=== PATIENT | male | born 1950 | race Caucasian/White ===

== ENCOUNTER 2017-01-21 04:08 | Inpatient (IN) | payer MEDICARE, MEDICAID ==
[~2017-01-21] VITALS: Ht 175.3 cm; Wt 80.4 kg
[~2017-01-21 04:08] MED LIST: ACET160S2 PO; ASPI-1093 PO; BUSP5TAB20 PO; DIAZ5 PO; DIPH25 PO; FERR-89 PO; GING550C4 PO; HYD50 PO; MECL-111 PO; OMEP10 PO; PANT40TA25 PO; SAXA2.5T PO; SEVEC800 PO; SIMV20TA6 PO; TRAZ-147 PO
[2017-01-21 04:27] LABS: GLUCOSE COMMENT 1 Doctor Notified; GLUCOSE,POINT OF CARE 83 MG/DL (70-110)
[2017-01-21 04:35] LABS: BASOPHILS % (AUTO) 0.7 % (0.0-2.0); EOSINOPHILS % (AUTO) 4.1 % (1.0-6.0); HEMATOCRIT 36.5 % (41-53); HEMOGLOBIN 11.5 g/dL (13.5-17.5); LYMPHOCYTES # (AUTO) 0.9 K/uL (1.0-4.8); LYMPHOCYTES % (AUTO) 14.5 % (22.0-44.0); MEAN CORPUSCULAR HEMOGLOBIN 30.2 pg (26.0-34.0); MEAN CORPUSCULAR HGB CONC 31.7 G/dL (31.0-37.0); MEAN CORPUSCULAR VOLUME 95 fL (80-100); MONOCYTES # (AUTO) 0.4 K/uL (0.1-1.0); MONOCYTES % (AUTO) 7.3 % (2.0-9.0); NEUTROPHILS # (AUTO) 4.4 K/uL (1.8-7.7); NEUTROPHILS % (AUTO) 73.4 % (40.0-70.0); PLATELET COUNT (AUTO) 213 K/uL (150-450); RED BLOOD CELL COUNT(AUTO) 3.82 MIL/uL (4.50-5.90); RED CELL DISTRIBUTION WIDTH 16.1 % (11.5-14.5); WHITE BLOOD COUNT (AUTO) 6.1 K/uL (4.5-11.0)
[2017-01-21 04:50] LABS: ALBUMIN 2.8 g/dL (3.4-5.0); BILIRUBIN,TOTAL 0.4 mg/dL (0.1-1.0); CALCIUM, TOTAL 8.5 mg/dL (8.8-10.5); CREATININE 7.49 mg/dL (0.60-1.30); TOTAL PROTEIN, SERUM 5.9 g/dL (6.4-8.2)
[2017-01-21 04:53] LABS: POTASSIUM 6.2 mmol/L (3.5-5.1)
[2017-01-21] MEDS ORDERED: CALCIUM GLUCONATE 100 MG/ML 10 ML IVP ONE (05:15)
[2017-01-21] MEDS ORDERED: DEXTROSE 50%-WATER 25 GM/50 ML SYRINGE IVP ONE (05:15)
[2017-01-21] MEDS ORDERED: INSULIN REGULAR, HUMAN 100 UNITS/ML IVP ONE (05:15)
[2017-01-21] MEDS ORDERED: ACETAMINOPHEN 325 MG TABLET PO PRN (06:45)
[2017-01-21] MEDS ORDERED: OxyCODONE HCL/ACETAMINOPHEN 5-325 MG TABLET PO PRN (06:45)
[2017-01-21] MEDS ORDERED: ALBUTEROL SULFATE 2.5 MG/0.5 ML NEB SOLUTION NEB PRN (06:45)
[2017-01-21] MEDS ORDERED: MAGNESIUM HYDROXIDE SUSPENSION 30 ML UDCUP PO PRN (06:45)
[2017-01-21] MEDS ORDERED: ONDANSETRON HCL 4 MG/2 ML VIAL IVP PRN (06:45)
[2017-01-21] MEDS ORDERED: ZOLPIDEM TARTRATE 5 MG TABLET PO PRN (06:45)
[2017-01-21] MEDS ORDERED: BISACODYL 10 MG RECTAL RECTAL SUPPOSITORY PR PRN (06:45)
[2017-01-21] MEDS ORDERED: IPRATROPIUM BROMIDE 0.5 MG/2.5 ML NEB SOLUTION NEB PRN (06:45)
[2017-01-21] MEDS ORDERED: DEXTROSE 50%-WATER 25 GM/50 ML SYRINGE IVP PRN (06:45)
[2017-01-21 07:03] VITALS: BP 134/55
[2017-01-21] MEDS: INSULIN ASPART 100 UNITS/ML SQ PRN ×2 (07:11→20:40)
[2017-01-21] MEDS: MECLIZINE HCL 25 MG TABLET PO SCH ×3 (08:12→20:33)
[2017-01-21] MEDS: DIAZEPAM 5 MG TABLET PO SCH ×2 (08:12→20:33)
[2017-01-21] MEDS: FERROUS SULFATE 325 MG EC TABLET PO SCH (08:12)
[2017-01-21] MEDS: SEVELAMER CARBONATE 800 MG TABLET PO SCH ×3 (08:12→17:14)
[2017-01-21] MEDS: ASPIRIN 81 MG EC TABLET PO SCH (08:12)
[2017-01-21] MEDS: PANTOPRAZOLE SODIUM 40 MG DR TABLET PO SCH (08:12)
[2017-01-21] MEDS: BusPIRone HCL 5 MG TABLET PO SCH ×2 (08:12→20:33)
[2017-01-21] MEDS: HEPARIN SODIUM,PORCINE 5,000 UNITS/ML VIAL SQ SCH ×2 (08:13→20:33)
[2017-01-21 09:18] LABS: GLUCOSE COMMENT 1 Received Meds; GLUCOSE,POINT OF CARE 44 MG/DL (70-110)
[2017-01-21 09:18] LABS: GLUCOSE,POINT OF CARE 117 MG/DL (70-110)
[2017-01-21 15:18] VITALS: BP 140/63
[2017-01-21 19:27] VITALS: BP 141/62
[2017-01-21] MEDS: SIMVASTATIN 20 MG TABLET PO SCH (20:33)
[2017-01-21] MEDS: TraZODone HCL 100 MG TABLET PO SCH (20:40)
[2017-01-22] VITALS: BP 129/56
[2017-01-22] MEDS ORDERED: INFLUENZA VIRUS VACCINE QVS 2016-17 (3YR+)/PF 60 MCG/0.5 ML SYRINGE IM ONE (04:45)
[2017-01-22 05:26] VITALS: BP 123/61
[2017-01-22 05:43] LABS: GLUCOSE,POINT OF CARE 147 MG/DL (70-110)
[2017-01-22 06:06] LABS: GLUCOSE,POINT OF CARE 125 MG/DL (70-110)
[2017-01-22] MEDS: INSULIN ASPART 100 UNITS/ML SQ PRN (06:07)
[2017-01-22 07:46] LABS: HEMOGLOBIN A1C 4.9 % (4.5-6.2)
[2017-01-22 07:52] LABS: BASOPHILS % (AUTO) 0.9 % (0.0-2.0); EOSINOPHILS % (AUTO) 4.8 % (1.0-6.0); HEMATOCRIT 36.5 % (41-53); HEMOGLOBIN 11.6 g/dL (13.5-17.5); LYMPHOCYTES # (AUTO) 0.9 K/uL (1.0-4.8); LYMPHOCYTES % (AUTO) 16.4 % (22.0-44.0); MEAN CORPUSCULAR HEMOGLOBIN 30.5 pg (26.0-34.0); MEAN CORPUSCULAR HGB CONC 31.7 G/dL (31.0-37.0); MEAN CORPUSCULAR VOLUME 96 fL (80-100); MONOCYTES # (AUTO) 0.5 K/uL (0.1-1.0); MONOCYTES % (AUTO) 9.2 % (2.0-9.0); NEUTROPHILS # (AUTO) 3.9 K/uL (1.8-7.7); NEUTROPHILS % (AUTO) 68.7 % (40.0-70.0); PLATELET COUNT (AUTO) 202 K/uL (150-450); RED BLOOD CELL COUNT(AUTO) 3.79 MIL/uL (4.50-5.90); RED CELL DISTRIBUTION WIDTH 16.6 % (11.5-14.5); WHITE BLOOD COUNT (AUTO) 5.7 K/uL (4.5-11.0)
[2017-01-22 07:54] VITALS: BP 135/65
[2017-01-22 07:56] LABS: ALBUMIN 2.5 g/dL (3.4-5.0); BILIRUBIN,TOTAL 0.4 mg/dL (0.1-1.0); CALCIUM, TOTAL 8.1 mg/dL (8.8-10.5); CREATININE 4.57 mg/dL (0.60-1.30); MAGNESIUM 2.1 mg/dL (1.80-2.40); PHOSPHORUS 3.9 mg/dL (2.5-4.9); POTASSIUM 4.7 mmol/L (3.5-5.1); TOTAL PROTEIN, SERUM 5.5 g/dL (6.4-8.2)
[2017-01-22] MEDS: HEPARIN SODIUM,PORCINE 5,000 UNITS/ML VIAL SQ SCH ×2 (08:04→20:29)
[2017-01-22] MEDS: BusPIRone HCL 5 MG TABLET PO SCH ×2 (08:05→20:24)
[2017-01-22] MEDS: PANTOPRAZOLE SODIUM 40 MG DR TABLET PO SCH (08:05)
[2017-01-22] MEDS: FERROUS SULFATE 325 MG EC TABLET PO SCH (08:05)
[2017-01-22] MEDS: MECLIZINE HCL 25 MG TABLET PO SCH ×3 (08:05→20:24)
[2017-01-22] MEDS: SEVELAMER CARBONATE 800 MG TABLET PO SCH ×3 (08:05→18:12)
[2017-01-22] MEDS: DIAZEPAM 5 MG TABLET PO SCH ×2 (08:05→20:24)
[2017-01-22] MEDS: ASPIRIN 81 MG EC TABLET PO SCH (08:05)
[2017-01-22 11:41] VITALS: BP 133/56
[2017-01-22 14:23] LABS: GLUCOSE,POINT OF CARE 107 MG/DL (70-110)
[2017-01-22 14:23] LABS: GLUCOSE,POINT OF CARE 115 MG/DL (70-110)
[2017-01-22 14:23] LABS: GLUCOSE,POINT OF CARE 86 MG/DL (70-110)
[2017-01-22 14:23] LABS: GLUCOSE,POINT OF CARE 113 MG/DL (70-110)
[2017-01-22 15:29] VITALS: BP 138/69
[2017-01-22 19:24] VITALS: BP 120/59
[2017-01-22] MEDS: SIMVASTATIN 20 MG TABLET PO SCH (20:24)
[2017-01-22] MEDS: TraZODone HCL 100 MG TABLET PO SCH (20:24)
[2017-01-23] VITALS (7 sets, daily range): BP systolic 110–156; BP diastolic 50–74
[2017-01-23 07:00] LABS: BASOPHILS # (AUTO) 0.07 K/uL (0.00-0.20); EOSINOPHILS # (AUTO) 0.36 K/uL (0.00-0.70); EOSINOPHILS % (AUTO) 4.75 % (1.0-6.0); HEMATOCRIT 36.5 % (41-53); HEMOGLOBIN 11.8 g/dL (13.5-17.5); LYMPHOCYTES % (AUTO) 13.1 % (22.0-44.0); MEAN CORPUSCULAR HEMOGLOBIN 30.6 pg (26.0-34.0); MEAN CORPUSCULAR HGB CONC 32.2 G/dL (31.0-37.0); MEAN CORPUSCULAR VOLUME 95 fL (80-100); MONOCYTES # (AUTO) 0.6 K/uL (0.1-1.0); MONOCYTES % (AUTO) 8.1 % (2.0-9.0); NEUTROPHILS # (AUTO) 5.5 K/uL (1.8-7.7); NEUTROPHILS % (AUTO) 73.1 % (40.0-70.0); PLATELET COUNT (AUTO) 231 K/uL (150-450); RED BLOOD CELL COUNT(AUTO) 3.85 MIL/uL (4.50-5.90); RED CELL DISTRIBUTION WIDTH 16.1 % (11.5-14.5); WHITE BLOOD COUNT (AUTO) 7.5 K/uL (4.5-11.0)
[2017-01-23 07:11] LABS: ALBUMIN 2.6 g/dL (3.4-5.0); BILIRUBIN,TOTAL 0.4 mg/dL (0.1-1.0); CALCIUM, TOTAL 8.1 mg/dL (8.8-10.5); CREATININE 5.52 mg/dL (0.60-1.30); POTASSIUM 5.2 mmol/L (3.5-5.1); TOTAL PROTEIN, SERUM 5.8 g/dL (6.4-8.2)
[2017-01-23 07:27] LABS: GLUCOSE,POINT OF CARE 109 MG/DL (70-110)
[2017-01-23 07:27] LABS: GLUCOSE,POINT OF CARE 109 MG/DL (70-110)
[2017-01-23] MEDS: HEPARIN SODIUM,PORCINE 5,000 UNITS/ML VIAL SQ SCH (09:09)
[2017-01-23] MEDS: DIAZEPAM 5 MG TABLET PO SCH ×2 (09:09→21:02)
[2017-01-23] MEDS: ASPIRIN 81 MG EC TABLET PO SCH (09:09)
[2017-01-23] MEDS: BusPIRone HCL 5 MG TABLET PO SCH ×2 (09:09→21:01)
[2017-01-23] MEDS: PANTOPRAZOLE SODIUM 40 MG DR TABLET PO SCH (09:09)
[2017-01-23] MEDS: MECLIZINE HCL 25 MG TABLET PO SCH ×3 (09:09→21:01)
[2017-01-23] MEDS: SEVELAMER CARBONATE 800 MG TABLET PO SCH ×3 (09:10→17:16)
[2017-01-23] MEDS ORDERED: PEG 3350/NA SULF,BICARB,CL/KCL 4000 ML SOLUTION PO ONE (13:00)
[2017-01-23 13:01] LABS: GLUCOSE,POINT OF CARE 139 MG/DL (70-110)
[2017-01-23] MEDS ORDERED: IOVERSOL 350 MG/ML 100 ML VIAL ONE (20:55)
[2017-01-23] MEDS: SIMVASTATIN 20 MG TABLET PO SCH (21:02)
[2017-01-23] MEDS: TraZODone HCL 100 MG TABLET PO SCH (21:02)
[2017-01-23] MEDS: INSULIN ASPART 100 UNITS/ML SQ PRN (22:06)
[2017-01-24] VITALS (7 sets, daily range): BP systolic 116–146; BP diastolic 46–64
[2017-01-24] MEDS ORDERED: LIDOCAINE HCL/PF 2% 5 ML VIAL IM ONE (06:57)
[2017-01-24] MEDS ORDERED: PROPOFOL 1% 20 ML VIAL IVP ONE (06:57)
[2017-01-24 07:23] LABS: BASOPHILS % (AUTO) 0.9 % (0.0-2.0); EOSINOPHILS % (AUTO) 5.1 % (1.0-6.0); HEMATOCRIT 34.2 % (41-53); HEMOGLOBIN 10.8 g/dL (13.5-17.5); LYMPHOCYTES # (AUTO) 0.6 K/uL (1.0-4.8); LYMPHOCYTES % (AUTO) 9.4 % (22.0-44.0); MEAN CORPUSCULAR HEMOGLOBIN 30.6 pg (26.0-34.0); MEAN CORPUSCULAR HGB CONC 31.7 G/dL (31.0-37.0); MEAN CORPUSCULAR VOLUME 97 fL (80-100); MONOCYTES # (AUTO) 0.6 K/uL (0.1-1.0); MONOCYTES % (AUTO) 9.7 % (2.0-9.0); NEUTROPHILS # (AUTO) 4.4 K/uL (1.8-7.7); NEUTROPHILS % (AUTO) 74.9 % (40.0-70.0); PLATELET COUNT (AUTO) 169 K/uL (150-450); RED BLOOD CELL COUNT(AUTO) 3.54 MIL/uL (4.50-5.90); RED CELL DISTRIBUTION WIDTH 16.1 % (11.5-14.5); WHITE BLOOD COUNT (AUTO) 5.9 K/uL (4.5-11.0)
[2017-01-24 07:41] LABS: ALBUMIN 2.4 g/dL (3.4-5.0); BILIRUBIN,TOTAL 0.3 mg/dL (0.1-1.0); CALCIUM, TOTAL 8.1 mg/dL (8.8-10.5); CREATININE 4.25 mg/dL (0.60-1.30); POTASSIUM 5.1 mmol/L (3.5-5.1); TOTAL PROTEIN, SERUM 5.7 g/dL (6.4-8.2)
[2017-01-24] MEDS: SEVELAMER CARBONATE 800 MG TABLET PO SCH ×3 (08:00→18:07)
[2017-01-24] MEDS ORDERED: SODIUM CHLORIDE 0.9% 1,000 ML IV ONE ×2 (08:49→09:30)
[2017-01-24] MEDS: MECLIZINE HCL 25 MG TABLET PO SCH ×3 (09:00→20:19)
[2017-01-24 10:27] LABS: GLUCOSE,POINT OF CARE 77 MG/DL (70-110)
[2017-01-24] MEDS: DIAZEPAM 5 MG TABLET PO SCH ×2 (12:23→20:20)
[2017-01-24] MEDS: PANTOPRAZOLE SODIUM 40 MG DR TABLET PO SCH (12:24)
[2017-01-24] MEDS: BusPIRone HCL 5 MG TABLET PO SCH ×2 (12:24→20:19)
[2017-01-24 13:57] LABS: GLUCOSE,POINT OF CARE 113 MG/DL (70-110)
[2017-01-24] MEDS: INSULIN ASPART 100 UNITS/ML SQ PRN ×2 (18:06→21:33)
[2017-01-24 18:26] LABS: GLUCOSE,POINT OF CARE 156 MG/DL (70-110)
[2017-01-24 19:47] LABS: GLUCOSE,POINT OF CARE 87 MG/DL (70-110)
[2017-01-24] MEDS: SIMVASTATIN 20 MG TABLET PO SCH (20:19)
[2017-01-24] MEDS: OXYGEN THERAPY IH SCH (20:19)
[2017-01-24] MEDS: TraZODone HCL 100 MG TABLET PO SCH (20:19)
[2017-01-24 23:47] LABS: GLUCOSE,POINT OF CARE 112 MG/DL (70-110)
[2017-01-25 05:06] VITALS: BP 134/67
[2017-01-25 06:14] LABS: BASOPHILS % (AUTO) 0.5 % (0.0-2.0); EOSINOPHILS % (AUTO) 2.6 % (1.0-6.0); HEMATOCRIT 35.4 % (41-53); HEMOGLOBIN 11.1 g/dL (13.5-17.5); LYMPHOCYTES # (AUTO) 0.6 K/uL (1.0-4.8); LYMPHOCYTES % (AUTO) 8.3 % (22.0-44.0); MEAN CORPUSCULAR HEMOGLOBIN 30.3 pg (26.0-34.0); MEAN CORPUSCULAR HGB CONC 31.4 G/dL (31.0-37.0); MEAN CORPUSCULAR VOLUME 96 fL (80-100); MONOCYTES # (AUTO) 0.6 K/uL (0.1-1.0); MONOCYTES % (AUTO) 8.1 % (2.0-9.0); NEUTROPHILS # (AUTO) 5.7 K/uL (1.8-7.7); NEUTROPHILS % (AUTO) 80.5 % (40.0-70.0); PLATELET COUNT (AUTO) 167 K/uL (150-450); RED BLOOD CELL COUNT(AUTO) 3.67 MIL/uL (4.50-5.90); RED CELL DISTRIBUTION WIDTH 16.1 % (11.5-14.5); WHITE BLOOD COUNT (AUTO) 7.1 K/uL (4.5-11.0)
[2017-01-25 06:25] LABS: ALBUMIN 2.5 g/dL (3.4-5.0); BILIRUBIN,TOTAL 0.3 mg/dL (0.1-1.0); CALCIUM, TOTAL 8.3 mg/dL (8.8-10.5); CREATININE 5.1 mg/dL (0.60-1.30); POTASSIUM 5.7 mmol/L (3.5-5.1); TOTAL PROTEIN, SERUM 5.7 g/dL (6.4-8.2)
[2017-01-25 07:34] VITALS: BP 128/69
[2017-01-25] MEDS: OXYGEN THERAPY IH SCH (08:10)
[2017-01-25] MEDS: SEVELAMER CARBONATE 800 MG TABLET PO SCH ×3 (08:10→17:52)
[2017-01-25] MEDS: MECLIZINE HCL 25 MG TABLET PO SCH ×3 (09:00→20:51)
[2017-01-25 11:09] VITALS: BP 133/60
[2017-01-25] MEDS: INSULIN ASPART 100 UNITS/ML SQ PRN ×2 (11:32→17:43)
[2017-01-25] MEDS: DIAZEPAM 5 MG TABLET PO SCH ×2 (14:11→20:51)
[2017-01-25] MEDS: PANTOPRAZOLE SODIUM 40 MG DR TABLET PO SCH (14:11)
[2017-01-25] MEDS: BusPIRone HCL 5 MG TABLET PO SCH ×2 (14:11→20:51)
[2017-01-25 15:18] VITALS: BP 134/58
[2017-01-25 17:52] LABS: GLUCOSE COMMENT 1 Received Meds; GLUCOSE,POINT OF CARE 156 MG/DL (70-110)
[2017-01-25 17:52] LABS: GLUCOSE,POINT OF CARE 82 MG/DL (70-110)
[2017-01-25 17:52] LABS: GLUCOSE,POINT OF CARE 105 MG/DL (70-110)
[2017-01-25 20:27] VITALS: BP 134/65
[2017-01-25] MEDS: TraZODone HCL 100 MG TABLET PO SCH (20:51)
[2017-01-25] MEDS: SIMVASTATIN 20 MG TABLET PO SCH (20:51)
[2017-01-25 21:37] LABS: GLUCOSE,POINT OF CARE 89 MG/DL (70-110)
[2017-01-26 04:57] VITALS: BP 131/57
[2017-01-26 06:12] LABS: GLUCOSE,POINT OF CARE 84 MG/DL (70-110)
[2017-01-26 07:04] LABS: BASOPHILS # (AUTO) 0.04 K/uL (0.00-0.20); BASOPHILS % (AUTO) 0.8 % (0.0-2.0); EOSINOPHILS % (AUTO) 3.52 % (1.0-6.0); HEMATOCRIT 33.3 % (41-53); HEMOGLOBIN 10.8 g/dL (13.5-17.5); LYMPHOCYTES # (AUTO) 0.7 K/uL (1.0-4.8); LYMPHOCYTES % (AUTO) 11.6 % (22.0-44.0); MEAN CORPUSCULAR HEMOGLOBIN 31.2 pg (26.0-34.0); MEAN CORPUSCULAR HGB CONC 32.4 G/dL (31.0-37.0); MEAN CORPUSCULAR VOLUME 96 fL (80-100); MONOCYTES # (AUTO) 0.5 K/uL (0.1-1.0); MONOCYTES % (AUTO) 9.2 % (2.0-9.0); NEUTROPHILS # (AUTO) 4.3 K/uL (1.8-7.7); PLATELET COUNT (AUTO) 156 K/uL (150-450); RED BLOOD CELL COUNT(AUTO) 3.47 MIL/uL (4.50-5.90); RED CELL DISTRIBUTION WIDTH 16.1 % (11.5-14.5); WHITE BLOOD COUNT (AUTO) 5.8 K/uL (4.5-11.0)
[2017-01-26 07:34] LABS: ALBUMIN 2.4 g/dL (3.4-5.0); BILIRUBIN,TOTAL 0.3 mg/dL (0.1-1.0); CALCIUM, TOTAL 8.4 mg/dL (8.8-10.5); CREATININE 4.15 mg/dL (0.60-1.30); POTASSIUM 4.6 mmol/L (3.5-5.1); TOTAL PROTEIN, SERUM 5.7 g/dL (6.4-8.2)
[2017-01-26 07:53] VITALS: BP 136/58
[2017-01-26] MEDS: SEVELAMER CARBONATE 800 MG TABLET PO SCH ×3 (07:58→18:28)
[2017-01-26] MEDS: BusPIRone HCL 5 MG TABLET PO SCH ×2 (07:58→21:00)
[2017-01-26] MEDS: PANTOPRAZOLE SODIUM 40 MG DR TABLET PO SCH (07:58)
[2017-01-26] MEDS: MECLIZINE HCL 25 MG TABLET PO SCH ×3 (07:59→21:00)
[2017-01-26] MEDS: DIAZEPAM 5 MG TABLET PO SCH ×2 (07:59→21:00)
[2017-01-26 11:31] LABS: GLUCOSE,POINT OF CARE 126 MG/DL (70-110)
[2017-01-26 11:53] VITALS: BP 161/82
[2017-01-26 15:49] VITALS: BP 140/104
[2017-01-26 17:37] LABS: GLUCOSE,POINT OF CARE 89 MG/DL (70-110)
[2017-01-26] MEDS: TraZODone HCL 100 MG TABLET PO SCH (21:00)
[2017-01-26] MEDS: SIMVASTATIN 20 MG TABLET PO SCH (21:00)
[2017-01-27 06:59] LABS: GLUCOSE,POINT OF CARE 97 MG/DL (70-110)
[2017-01-27 06:59] LABS: GLUCOSE,POINT OF CARE 117 MG/DL (70-110)
== END 2017-01-27 01:20 | disposition left against medical advice (07) | DRG 291 ==
LOC: EMS 04:10 → 5S 05:58 → 6N 01-25 18:55
PROVIDERS: ADMIT Internal Medicine; ATTEND Internal Medicine
PROC: 5A1D60Z (ICD-10-PCS; 2017-01-21)
PROC: 0DBL8ZX Excision of Transverse Colon, Via Natural or Artificial Opening Endoscopic, Diagnostic (ICD-10-PCS; 2017-01-24)
PROC: 0DB68ZX Excision of Stomach, Via Natural or Artificial Opening Endoscopic, Diagnostic (ICD-10-PCS; principal; 2017-01-24 10:30)
DX: I13.2 Hypertensive heart and chronic kidney disease with heart failure and with stage 5 chronic kidney disease, or end stage renal disease (principal); N18.6 End stage renal disease; K92.1 Melena; E87.1 Hypo-osmolality and hyponatremia; E44.0 Moderate protein-calorie malnutrition; E87.5 Hyperkalemia; J44.9 Chronic obstructive pulmonary disease, unspecified; E11.65 Type 2 diabetes mellitus with hyperglycemia; K21.9 Gastro-esophageal reflux disease without esophagitis; I25.10 Atherosclerotic heart disease of native coronary artery without angina pectoris; D12.3 Benign neoplasm of transverse colon; E11.21 Type 2 diabetes mellitus with diabetic nephropathy; E11.22 Type 2 diabetes mellitus with diabetic chronic kidney disease; G89.29 Other chronic pain; J45.909 Unspecified asthma, uncomplicated; K64.8 Other hemorrhoids; M06.9 Rheumatoid arthritis, unspecified; M10.9 Gout, unspecified; E11.649 Type 2 diabetes mellitus with hypoglycemia without coma; K63.5 Polyp of colon; I50.9 Heart failure, unspecified; D50.9 Iron deficiency anemia, unspecified; E78.5 Hyperlipidemia, unspecified; D63.8 Anemia in other chronic diseases classified elsewhere; K29.00 Acute gastritis without bleeding; J98.4 Other disorders of lung; Z99.2 Dependence on renal dialysis; Z68.26 Body mass index [BMI] 26.0-26.9, adult; Z88.8 Allergy status to other drugs, medicaments and biological substances; Z79.82 Long term (current) use of aspirin; Z79.899 Other long term (current) drug therapy
CPT/HCPCS: 71260; 82271; 82962; 83036; 83735; 84100; 87081; 87340; 88305; 88312; 90471; 90935; 93005; 94640; 96374; 96375; 99285; J0610; J1644; J1815; J2704; J3490; J7030